=== PATIENT | male | born 1970 | race Hispanic/Latino ===

== ENCOUNTER 2021-10-20 12:02 | Emergency (ER) | payer SELFPAY ==
[2021-10-20 12:07] VITALS: BP 164/82; PULSE 67; RESP 16; TEMP 36.6; O2SAT 100
== END 2021-10-21 02:53 | disposition left against medical advice (07) ==
DX: R09.81 Nasal congestion (principal)
CPT/HCPCS: 99199

== ENCOUNTER 2024-09-08 16:07 | Outpatient (CLI) | payer OTHER, SELFPAY ==
--- NOTE | ~2024-09-08 | XR_ITS ---
EXAMINATION: XR chest 2V 09/08/2024 16:33 INDICATION: Chronic cough PROCEDURE: 2 view chest COMPARISON: 09/13/2010 FINDINGS: The lungs are clear. The lungs are hyperinflated which is consistent with, but not diagnost ic of chronic obstructive pulmonary disease. The cardiomediastinal silhouette is within normal limits . There are no pleural effusions. There is no pneumothorax suspected. IMPRESSION: 1: NO ACUTE CARDIOPULMONARY DISEASE. Reviewed, dictated and finalized at location B. D TRAFFIC INVESTIGATOR
--- NOTE | ~2024-09-08 | XR_ITS ---
EXAMINATION: XR_CERV2-3V_CR DATE: 09/08/2024 16:33 INDICATION: Neck pain. TECHNIQUE: 3 views of cervical spine were obtained. COMPARISON: None. FINDINGS: There is 2 mm retrolisthesis of C4 on C5 and C5 on C6 and 2 mm anterolisthesis of C7 on T1. There is levoscoliosis of thoracic spine. Vertebral body heights are normal. There is moderately dec reased disc height at C4-C5, C5-C6, and C6-C7. There is multilevel [id number] facet joint osteo arthritis. 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 There is mild central canal stenosis at C4-C5, C5-C6, and C6-C7. No prevertebral soft tiss ue swelling. IMPRESSION: 1. Severe cervical spondylosis. Reviewed, dictated and finalized at location A. MENTATION MANAGER
--- NOTE | ~2024-09-08 | XR_ITS ---
EXAMINATION: XR thoracic spine 3V DATE: 09/08/2024 16:33 INDICATION: Back pain. TECHNIQUE: 3 views of thoracic spine were obtained. COMPARISON: Thoracic spine radiograph 03/17/2006 FINDINGS: There is 16 degrees levoscoliosis of thoracic spine. There is kyphosis of Vertebral body he ights are normal. There is mildly decreased disc height at T7-T8 and T9-T10. There are endplate osteo phytes at multiple levels. IMPRESSION: 1. Mild thoracic spondylosis. 2. Thoracic levoscoliosis and kyphosis. Reviewed, dictated and finalized at location A. ATOR SPECIALIST
== END 2024-09-08 16:08 | disposition home or self-care (01) ==
PROVIDERS: PCP Nurse Practitioner Family; Visit Provider Nurse Practitioner Family
DX: K21.9 Gastro-esophageal reflux disease without esophagitis (principal); R05.3 Chronic cough; Z12.5 Encounter for screening for malignant neoplasm of prostate; Z13.220 Encounter for screening for lipoid disorders; M47.892 Other spondylosis, cervical region; M47.894 Other spondylosis, thoracic region
CPT/HCPCS: 71046; 72040; 72072

== ENCOUNTER 2024-12-20 08:45 | Day surgery (SDC) | payer OTHER, SELFPAY ==
[2024-08-30 09:26] VITALS: BMI 24.0
[2024-12-20 10:11] VITALS: BP 153/63; PULSE 62; RESP 16; TEMP 36.8; O2SAT 100
[2024-12-20] MEDS: LACTATED RINGERS 1,000 ML 150 ML IV CONT (10:20)
--- NOTE | 2024-12-20 10:44 | PM.IMHP ---
H&P: HPI History of Present Illness Date/Time: 12/20/24 10:44 Chief Complaint: Screening colonoscopy Narrative: This is the patient's first colonoscopy. There are no GI symptoms and there is no family history of colorectal cancer. Review of Systems Review of Systems: All systems reviewed & are unremarkable except as noted in HPI and below PMFSH Family History Family History Father Asthma Alcohol abuse Hypertension Mother Asthma Hypertension Heart problem Social History Social History Smoking status: Never smoker Alcohol intake: never Substance use: never Substance use type: does not use Living arrangements: with family Meds Home Medications and Allergies Home Medications ?Medication ?Instructions ?Recorded ?Confirmed ?Type pantoprazole 40 mg tablet,delayed 40 mg PO QAM #90 tabs 08/24/24 12/20/24 Rx release tamsulosin 0.4 mg capsule 0.4 mg PO DAILY #90 caps 08/24/24 11/30/24 Rx Allergies Allergy/AdvReac Type Severity Reaction Status Date / Time No Known Allergies Allergy Verified 12/20/24 10:26 Vital Signs Vital Signs - 24 hr 12/20/24 10:11 Temperature 98.3 F Pulse Rate 62 Respiratory Rate 16 Blood Pressure 153/63 H Pulse Oximetry 100 Oxygen Delivery Room Air Exam Const: General: cooperative and healthy appearing Resp: Effort & Inspection: normal respiratory effort and able to speak in complete sentences Auscultation: clear to auscultation bilaterally Cardio: Rate: regular rate Rhythm: regular rhythm GI: Inspection: normal to inspection GI Palp: No No hepatosplenomegaly present Auscultation: normal bowel sounds Rectal Exam: deferred Skin: General skin exam: normal color Psych: Appearance: grossly normal Mental Status: mental status grossly normal Assessment and Plan Assessment and plan (1) Colon cancer screening: Code(s): Z12.11 - Encounter for screening for malignant neoplasm of colon Status: Acute Assessment and Plan: The patient is deemed a good candidate for the procedure. Consent signed. Will proceed.
--- NOTE | 2024-12-20 10:45 | WPDANESEPPF ---
Anes - Initial Pre Proc Eval Procedure: Operation Date: 12/20/24 10:30 Proposed Procedures p Screening Colonoscopy - Ayad Hinton MD Date/Time: 12/20/24 10:45 Surgeon: Ayad Hinton MD Pre Op Diagnosis: Screening Neoplasm of the Colon Patient Data Age: 54 Gender: M Height: 1.57 m Weight: 56.85 kg Last Vital Signs Temp 36.8 C 12/20/24 10:11 Pulse 62 12/20/24 10:11 Resp 16 12/20/24 10:11 BP 153/63 H 12/20/24 10:11 Pulse Ox 100 12/20/24 10:11 O2 Del Method Room Air 12/20/24 10:11 Allergies Allergy/AdvReac Type Severity Reaction Status Date / Time No Known Allergies Allergy Verified 12/20/24 10:26 Home Medications ?Medication ?Instructions ?Recorded ?Confirmed ?Type pantoprazole 40 mg tablet,delayed 40 mg PO QAM #90 tabs 08/24/24 12/20/24 Rx release tamsulosin 0.4 mg capsule 0.4 mg PO DAILY #90 caps 08/24/24 11/30/24 Rx Patient hx anesthesia problems: none Family hx anesthesia problems: none Results Review: All pre-operative results and documents have been reviewed as part of the pre-operative evaluation. [facility] Family History Family History Father Asthma Alcohol abuse Hypertension Mother Asthma Hypertension Heart problem Social History Social History Smoking status: Never smoker Alcohol intake: never Substance use: never Substance use type: does not use Living arrangements: with family Anes - Eval Final PreProcedure Day of Procedure 12/20/24 10:45 Patient weight: normal Heart: regular rate and rhythm Lungs: clear to auscultation Airway: Mallampati scale class II Neurological: alert and oriented Last oral intake: >/= 8 hours ASA classification: II Emergent: no Anesthetic plan: proceed Anesthesia type and monitoring: general GIVS and standard monitoring Results Review: All pre-operative results and documents have been reviewed as part of the pre-operative evaluation. Informed Consent: The patient's anesthetic plan and its attendant risks and benefits were discussed with the patient/family/POA. Questions were solicited and answers provided to the satisfaction of the patient/family/POA.
[2024-12-20 11:00] VITALS: BP 126/58; PULSE 53; RESP 15; O2SAT 98
[2024-12-20 11:10] VITALS: BP 100/51; PULSE 51; RESP 15; O2SAT 98
[2024-12-20 11:20] VITALS: BP 121/60; PULSE 50; RESP 15; O2SAT 98
--- NOTE | 2024-12-20 11:31 | WPDANESPN ---
Anes - Prog Note Post-Op Date/Time: 12/20/24 11:31 Cardiovascular status: normal Respiratory status: normal Airway patency: baseline Mental status: baseline Post-Op hydration status: normal Vital Signs: Last Vital Signs Temp 36.8 C 12/20/24 10:11 Pulse 50 L 12/20/24 11:20 Resp 15 12/20/24 11:20 BP 121/60 12/20/24 11:20 Pulse Ox 98 12/20/24 11:20 O2 Del Method Room Air 12/20/24 11:20 Pain Score (VAS): 0/10 I/O: Intake & Output 12/19/24 12/20/24 12/20/24 23:59 07:59 15:59 Intake Total 300 Balance 300 Patient Feedback: Patient satisfied with anesthetic care.
== END 2024-12-20 11:33 | disposition home or self-care (01) ==
PROVIDERS: PCP Nurse Practitioner Family; Referring Provider Nurse Practitioner Family; Visit Provider Internal Medicine Gastroenterology
PROC: 0DJD8ZZ Inspection of Lower Intestinal Tract, Via Natural or Artificial Opening Endoscopic (ICD-10-PCS; CPT 45378; principal; 2024-12-20 10:30)
DX: Z12.11 Encounter for screening for malignant neoplasm of colon (principal); K57.30 Diverticulosis of large intestine without perforation or abscess without bleeding
CPT/HCPCS: 45378